=== PATIENT | male | born 1950 | race Caucasian/White ===

== ENCOUNTER 2021-09-22 11:41 | Outpatient (CLI) | payer MEDICARE, BC | END 2021-09-22 11:42 | disposition home or self-care (01) | LOC: BURRAD 11:41 | PROVIDERS: ATTEND Family Medicine | DX: M25.561 Pain in right knee (principal); M25.562 Pain in left knee; M25.571 Pain in right ankle and joints of right foot; M25.572 Pain in left ankle and joints of left foot; M17.0 Bilateral primary osteoarthritis of knee; M67.873 Other specified disorders of tendon, right ankle and foot; M25.871 Other specified joint disorders, right ankle and foot ==